=== PATIENT | male | born 1980 | race African-American/Black ===

== ENCOUNTER 2016-03-28 11:21 | Emergency (ER) | payer OTHER ==
[2016-03-28] MEDS ORDERED: OSELTAMIVIR 75 MG CAP PO STA (13:08)
--- NOTE | 2016-03-28 13:13 | ED ---
Weakness HPI - General Chief complaint: Weakness Stated complaint: WEAKNESS, NAUSEA Time Seen by Provider: 03/28/16 12:36 Source: patient, RN notes reviewed Mode of arrival: ambulatory Limitations: no limitations - History of Present Illness Initial comments: Patient's a 35-year-old man who presents with a number of symptoms that include a feeling of generalized fatigue and weakness, cough, fever and chills, and myalgia. He has also had a touch of nausea though no vomiting. The symptoms have started 2 days ago and worse overnight. MD Complaint: generalized weakness, lack of energy Onset/Timin -: days(s) Location: generalized Severity: mild Quality: aching Improves with: none Worsens with: none Associated Symptoms: fever/chills, nausea/vomiting - Related Data Home Medications Medication Instructions Recorded Confirmed Cetirizine HCl [Zyrtec] 10 mg PO DAILY 03/28/16 03/28/16 Omeprazole [PriLOSEC] 20 mg PO DAILY 03/28/16 03/28/16 Previous Rx's Medication Instructions Recorded Oseltamivir [Tamiflu] 75 mg PO Q12HR #10 cap 03/28/16 Promethazine 6.25MG/5Ml [Phenergan 5 ml PO Q4HR PRN #120 ml 03/28/16 Syrup] Allergies Allergy/AdvReac Type Severity Reaction Status Date / Time celery Allergy Unknown Verified 03/28/16 12:50 Melon Allergy Unknown Verified 03/28/16 12:50 Penicillins Allergy Rash/Hives Verified 03/28/16 12:50 shellfish derived [Shrimp] Allergy Unknown Verified 03/28/16 12:50 yeast, dried Allergy Unknown Verified 03/28/16 12:50 Review of Systems ROS Statement: Those systems with pertinent positive or pertinent negative responses have been documented in the HPI. ROS Other: All systems not noted in ROS Statement are negative. Constitutional: Reports: fever, chills, weakness Respiratory: Reports: cough. Denies: dyspnea, wheezes Cardiovascular: Denies: chest pain, palpitations, edema Gastrointestinal: Reports: nausea. Denies: abdominal pain, vomiting, diarrhea Genitourinary: Denies: dysuria, hematuria Musculoskeletal: Denies: back pain Skin: Denies: rash Neurological: Denies: headache, weakness, numbness Past Medical History Past Medical History: No Reported History History of Any Multi-Drug Resistant Organisms: None Reported Past Surgical History: Adenoidectomy, Tonsillectomy Past Psychological History: No Psychological Hx Reported Smoking Status: Current every day smoker Past Alcohol Use History: Rare Past Drug Use History: None Reported General Exam Limitations: no limitations General appearance: alert, in no apparent distress Head exam: Present: atraumatic Eye exam: Present: normal appearance. Absent: scleral icterus, conjunctival injection ENT exam: Present: normal oropharynx Neck exam: Present: normal inspection, full ROM, lymphadenopathy. Absent: tenderness, meningismus Respiratory exam: Present: normal lung sounds bilaterally. Absent: respiratory distress, wheezes, rales, rhonchi Cardiovascular Exam: Present: regular rate, normal rhythm, normal heart sounds. Absent: systolic murmur, diastolic murmur, rubs, gallop GI/Abdominal exam: Present: soft. Absent: distended, tenderness, guarding, rebound Back exam: Absent: CVA tenderness (R), CVA tenderness (L) Neurological exam: Present: alert, normal gait. Absent: motor sensory deficit Skin exam: Present: warm, dry, intact, normal color. Absent: rash Course Vital Signs 03/28/16 03/28/16 11:41 13:27 Temperature 98.5 F 98.2 F Pulse Rate 75 72 Respiratory 18 16 Rate Blood Pressure 111/60 126/80 O2 Sat by Pulse 98 97 Oximetry Disposition Clinical Impression: Influenza Disposition: HOME SELF-CARE Condition: Fair Instructions: Influenza (ED) Prescriptions: Oseltamivir [Tamiflu] 75 mg PO Q12HR #10 cap Promethazine 6.25MG/5Ml [Phenergan Syrup] 5 ml PO Q4HR PRN #120 ml PRN Reason: Cough Referrals: Kofi Mahoney MD [Primary Care Provider] - 1-2 days
[2016-03-28 13:29] VITALS: BP 126/80; PULSE 72; RESP 16; TEMP 98.2
== END 2016-03-28 13:29 | disposition home or self-care (01) ==
LOC: EC 11:21
DX: J11.1 Influenza due to unidentified influenza virus with other respiratory manifestations (principal); F17.200 Nicotine dependence, unspecified, uncomplicated; Z79.899 Other long term (current) drug therapy; Z88.0 Allergy status to penicillin
CPT/HCPCS: 99284

== ENCOUNTER 2016-11-27 09:21 | Emergency (ER) | payer OTHER ==
[2016-11-27] MEDS ORDERED: IPRATROPIUM-ALBUTEROL 3 ML NEB INHALATION STA (09:37)
--- NOTE | 2016-11-27 09:37 | ED ---
SOB HPI - General Chief Complaint: Shortness of Breath Stated Complaint: chest pain Time Seen by Provider: 11/27/16 09:21 Source: patient, EMS, RN notes reviewed Mode of arrival: EMS Limitations: no limitations - History of Present Illness Initial Comments: This is a 35-year-old male who was a smoker who states he had the onset about half hour prior to admission of shortness of breath with chest pressure and heaviness. Does have some dizziness. He had no known history of heart or lung disease only does smoke one half pack cigarettes per day. He does not use any inhalers. He was given nitroglycerin and the pain did resolve after one nitroglycerin is also given 324 mg of aspirin. He cannot quantify how severe the pain was but is gone now he still feels short of breath however. He's reported have clear lung sounds pulse oximetry 98% on room air. Patient does have a history of gastroesophageal reflux. He also states she's had a cough for about a month EKG coughs up yellow or white phlegm but experiences no fevers chills or sweats. MD Complaint: shortness of breath, cough, chest pain - Related Data Home Medications Medication Instructions Recorded Confirmed Cetirizine HCl [Zyrtec] 10 mg PO DAILY 03/28/16 11/27/16 Omeprazole [PriLOSEC] 20 mg PO DAILY 03/28/16 11/27/16 Previous Rx's Medication Instructions Recorded Albuterol Inhaler [Ventolin Hfa 2 puff INHALATION Q6HR PRN #1 11/27/16 Inhaler] inhaler predniSONE 20 mg PO BID #10 tab 11/27/16 Allergies Allergy/AdvReac Type Severity Reaction Status Date / Time celery Allergy Unknown Verified 11/27/16 09:57 Melon Allergy Unknown Verified 11/27/16 09:57 Penicillins Allergy Rash/Hives Verified 11/27/16 09:57 shellfish derived [Shrimp] Allergy Unknown Verified 11/27/16 09:57 yeast, dried Allergy Unknown Verified 11/27/16 09:57 Review of Systems ROS Statement: Those systems with pertinent positive or pertinent negative responses have been documented in the HPI. ROS Other: All systems not noted in ROS Statement are negative. Past Medical History Past Medical History: No Reported History Additional Past Medical History / Comment(s): Multiple food allergies History of Any Multi-Drug Resistant Organisms: None Reported Past Surgical History: Adenoidectomy, Tonsillectomy Past Psychological History: No Psychological Hx Reported Smoking Status: Current every day smoker Past Alcohol Use History: Rare Past Drug Use History: None Reported General Exam - General Exam Comments Initial Comments: this is a well-developed well-nourished alert oriented 3 male Limitations: no limitations General appearance: alert, anxious Head exam: Present: atraumatic, normocephalic, normal inspection Eye exam: Present: normal appearance, PERRL, EOMI. Absent: scleral icterus, conjunctival injection, periorbital swelling ENT exam: Present: normal exam, mucous membranes moist Neck exam: Present: normal inspection. Absent: tenderness, meningismus, lymphadenopathy Respiratory exam: Present: decreased breath sounds. Absent: respiratory distress, wheezes, rales, rhonchi, stridor Cardiovascular Exam: Present: regular rate, normal rhythm, normal heart sounds. Absent: systolic murmur, diastolic murmur, rubs, gallop, clicks GI/Abdominal exam: Present: soft, normal bowel sounds. Absent: distended, tenderness, guarding, rebound, rigid Extremities exam: Present: normal inspection, full ROM, normal capillary refill. Absent: tenderness, pedal edema, joint swelling, calf tenderness Back exam: Present: normal inspection Neurological exam: Present: alert, oriented X3, CN II-XII intact Psychiatric exam: Present: normal affect, normal mood Skin exam: Present: warm, dry, intact, normal color. Absent: rash Course Vital Signs 11/27/16 11/27/16 11/27/16 09:26 09:45 09:54 Temperature 98.1 F Pulse Rate 89 91 91 Respiratory 17 14 Rate Blood Pressure 117/68 O2 Sat by Pulse 97 Oximetry Medical Decision Making - Medical Decision Making Patient on reevaluation was resting comfortably and feeling improved the presentation is consistent with acute bronchospasm. We did have a long discussion that seems 3.1 minutes regarding smoking cessation. Patient will be discharged on appropriate medication he is warned that he should stop smoking. - Lab Data Result diagrams: 11/27/16 09:26 11/27/16 09:26 Lab Results 11/27/16 11/27/16 11/27/16 Range/Units 09:26 09:26 09:26 WBC 4.7 (3.8-10.6) k/uL RBC 4.48 (4.30-5.90) m/uL Hgb 13.6 (13.0-17.5) gm/dL Hct 42.0 (39.0-53.0) % MCV 93.7 (80.0-100.0) fL MCH 30.3 (25.0-35.0) pg MCHC 32.4 (31.0-37.0) g/dL RDW 13.2 (11.5-15.5) % Plt Count 235 (150-450) k/uL Neutrophils % 54 % Lymphocytes % 36 % Monocytes % 5 % Eosinophils % 1 % Basophils % 1 % Neutrophils # 2.5 (1.3-7.7) k/uL Lymphocytes # 1.7 (1.0-4.8) k/uL Monocytes # 0.3 (0-1.0) k/uL Eosinophils # 0.1 (0-0.7) k/uL Basophils # 0.0 (0-0.2) k/uL PT (9.0-12.0) sec INR (<1.2) APTT (22.0-30.0) sec D-Dimer (<0.60) mg/L FEU Sodium 143 (137-145) mmol/L Potassium 4.4 (3.5-5.1) mmol/L Chloride 110 H (98-107) mmol/L Carbon Dioxide 20 L (22-30) mmol/L Anion Gap 13 mmol/L BUN 8 L (9-20) mg/dL Creatinine 1.03 (0.66-1.25) mg/dL Est GFR (MDRD) Af Amer >60 (>60 ml/min/1.73 sqM) Est GFR (MDRD) Non-Af >60 (>60 ml/min/1.73 sqM) Glucose 107 H (74-99) mg/dL Calcium 9.4 (8.4-10.2) mg/dL Magnesium 2.0 (1.6-2.3) mg/dL Total Bilirubin 0.7 (0.2-1.3) mg/dL AST 28 (17-59) U/L ALT 37 (21-72) U/L Alkaline Phosphatase 53 (38-126) U/L Total Creatine Kinase 649 H (55-170) U/L CK-MB (CK-2) 0.8 (0.0-2.4) ng/mL CK-MB (CK-2) Rel Index 0.1 Troponin I <0.012 (0.000-0.034) ng/mL NT-Pro-B Natriuret Pep pg/mL Total Protein 7.2 (6.3-8.2) g/dL Albumin 4.5 (3.5-5.0) g/dL Amylase 61 (30-110) U/L Lipase 42 (23-300) U/L 11/27/16 11/27/16 Range/Units 09:26 09:26 WBC (3.8-10.6) k/uL RBC (4.30-5.90) m/uL Hgb (13.0-17.5) gm/dL Hct (39.0-53.0) % MCV (80.0-100.0) fL MCH (25.0-35.0) pg MCHC (31.0-37.0) g/dL RDW (11.5-15.5) % Plt Count (150-450) k/uL Neutrophils % % Lymphocytes % % Monocytes % % Eosinophils % % Basophils % % Neutrophils # (1.3-7.7) k/uL Lymphocytes # (1.0-4.8) k/uL Monocytes # (0-1.0) k/uL Eosinophils # (0-0.7) k/uL Basophils # (0-0.2) k/uL PT 12.0 (9.0-12.0) sec INR 1.2 H (<1.2) APTT 31.0 H (22.0-30.0) sec D-Dimer <0.17 (<0.60) mg/L FEU Sodium (137-145) mmol/L Potassium (3.5-5.1) mmol/L Chloride (98-107) mmol/L Carbon Dioxide (22-30) mmol/L Anion Gap mmol/L BUN (9-20) mg/dL Creatinine (0.66-1.25) mg/dL Est GFR (MDRD) Af Amer (>60 ml/min/1.73 sqM) Est GFR (MDRD) Non-Af (>60 ml/min/1.73 sqM) Glucose (74-99) mg/dL Calcium (8.4-10.2) mg/dL Magnesium (1.6-2.3) mg/dL Total Bilirubin (0.2-1.3) mg/dL AST (17-59) U/L ALT (21-72) U/L Alkaline Phosphatase (38-126) U/L Total Creatine Kinase (55-170) U/L CK-MB (CK-2) (0.0-2.4) ng/mL CK-MB (CK-2) Rel Index Troponin I (0.000-0.034) ng/mL NT-Pro-B Natriuret Pep 14 pg/mL Total Protein (6.3-8.2) g/dL Albumin (3.5-5.0) g/dL Amylase (30-110) U/L Lipase (23-300) U/L - EKG Data -: EKG Interpreted by Me EKG shows normal: sinus rhythm, axis, intervals, QRS complexes, ST-T waves Rate: normal (EKG shows normal sinus rhythm of 99. Interval 138 QRS duration 100 QT since QTC of 332/426 this is a normal-appearing EKG.) - Radiology Data Radiology results: report reviewed (I did review the imaging and reports no acute findings.), image reviewed Disposition Clinical Impression: Acute bronchospasm, Atypical chest pain, Smoking Disposition: HOME SELF-CARE Condition: Good Instructions: Bronchospasm (ED), How to Stop Smoking (ED) Prescriptions: Albuterol Inhaler [Ventolin Hfa Inhaler] 2 puff INHALATION Q6HR PRN #1 inhaler PRN Reason: Dyspnea predniSONE 20 mg PO BID #10 tab Referrals: Joana Camacho MD [Primary Care Provider] - 1-2 days
[2016-11-27 09:45] LABS: Basophils % (A) 1 %; CH 31.4; CHCM 33.6; Eosinophils # (A) 0.1 k/uL (0-0.7); Eosinophils % (A) 1 %; HDW 2.29; HGB 13.6 gm/dL (13.0-17.5); Luc # (Auto) 0.15; Luc % (Auto) 3; Lymphocytes # (A) 1.7 k/uL (1.0-4.8); Lymphocytes % (A) 36 %; MCH 30.3 pg (25.0-35.0); MCHC 32.4 g/dL (31.0-37.0); MCV 93.7 fL (80.0-100.0); Mean Platelet Volume 7.7; Monocytes # (A) 0.3 k/uL (0-1.0); Monocytes % (A) 5 %; Neutrophils # (A) 2.5 k/uL (1.3-7.7); Neutrophils % (A) 54 %; RBC 4.48 m/uL (4.30-5.90); RDW 13.2 % (11.5-15.5); WBC 4.7 k/uL (3.8-10.6); WBC (Perox) 4.96
--- NOTE | 2016-11-27 09:47 | XR ---
EXAMINATION TYPE: XR chest 2V DATE OF EXAM: 11/27/2016 HISTORY: Chest Pain. REFERENCE: Previous study dated 01/24/2016. FINDINGS: The lungs are clear. Pleural spaces are clear. Heart size is normal. IMPRESSION: NORMAL CHEST.
[2016-11-27 09:54] LABS: ALT 37 U/L (21-72); AST 28 U/L (17-59); Alkaline Phosphatase 53 U/L (38-126); Amylase 61 U/L (30-110); Anion Gap 13 mmol/L; Blood Urea Nitrogen 8 mg/dL (9-20); Calcium 9.4 mg/dL (8.4-10.2); Carbon Dioxide 20 mmol/L (22-30); Chloride 110 mmol/L (98-107); Glucose 107 mg/dL (74-99); Non-African American GFR(MDRD) >60 (>60 ml/min/1.73 sqM); Potassium 4.4 mmol/L (3.5-5.1); Sodium 143 mmol/L (137-145); Total Bilirubin 0.7 mg/dL (0.2-1.3); Total Protein 7.2 g/dL (6.3-8.2)
[2016-11-27 09:59] LABS: INR 1.2 (<1.2)
[2016-11-27 10:04] LABS: Creatine Kinase 649 U/L (55-170)
[2016-11-27 10:17] LABS: Creatine Kinase MB 0.8 ng/mL (0.0-2.4); Troponin I <0.012 ng/mL (0.000-0.034)
[2016-11-27] MEDS ORDERED: predniSONE 50 MG TAB PO STA (11:08)
[2016-11-27 11:33] VITALS: BP 106/65; PULSE 62; RESP 17; TEMP 97.2
== END 2016-11-27 11:33 | disposition home or self-care (01) ==
LOC: EC 09:21
DX: J98.01 Acute bronchospasm (principal); R07.89 Other chest pain; K21.9 Gastro-esophageal reflux disease without esophagitis; F17.210 Nicotine dependence, cigarettes, uncomplicated; Z79.899 Other long term (current) drug therapy; Z88.0 Allergy status to penicillin; Z91.013 Allergy to seafood; Z91.018 Allergy to other foods
CPT/HCPCS: 36415; 94640; 93005; 85379; 83880; 80053; 82150; 82550; 82553; 83690; 83735; 84484; 85025; 85610; 85730; 87040; 71020; 99285; J7512

== ENCOUNTER → 2016-12-08 | Outpatient (CLI) | payer OTHER ==
--- NOTE | 2016-12-08 21:31 | EST ---
EXERCISE STRESS AGE: 36 SEX: Male. HT: WT: PROTOCOL: STAGE: DURATION OF EXERCISE: HEART RATE REST: BLOOD PRESSURE REST: MAXIMUM HEART RATE ACHIEVED: MAXIMUM BLOOD PRESSURE: 85% MPHR: 100% MPHR: METS: INDICATIONS: History of chest pain and shortness of breath. CLINICAL INFORMATION: Baseline heart rate 88 beats per minute. Baseline blood pressure 117/85 mmHg. Baseline 12-lead ECG shows normal sinus rhythm and normal cardiac intervals. Patient exercised on Lonny protocol for only 8 minutes, achieving a peak heart rate of 173 beats per minute. Normal blood pressure response to exercise. Peak blood pressure was 174/55 mmHg. There was no ECG evidence for ischemia. No arrhythmias were noted. Nuclear portion of the stress test will be reported separately. MMODL / IJN: [id number] /
== END | disposition home or self-care (01) ==
LOC: RADNMMAIN 10:49
PROVIDERS: ATTEND Internal Medicine
DX: R07.89 Other chest pain (principal); R06.00 Dyspnea, unspecified
CPT/HCPCS: 93017

== ENCOUNTER 2022-11-23 14:02 | Emergency (ER) | payer OTHER ==
--- NOTE | 2022-11-23 14:14 | ED ---
General Adult HPI - General Source: patient, police, EMS, RN notes reviewed Mode of arrival: EMS Limitations: no limitations <Herbert Juarez - Last Filed: 11/23/22 14:13> <Frida Ruiz - Last Filed: 11/23/22 21:20> - General Stated complaint: abd pain Time Seen by Provider: 11/23/22 14:13 - History of Present Illness Initial comments: 41-year-old male presents emergency Department with police for evaluation of abdominal pain. Patient is currently incarcerated states pain started after eating today. Patient states sometimes radiating out. He states she's been told that he's had ALLERGIES to gluten. (Herbert Juarez) Patient is a 41-year-old male who presents to the emergency department for abdominal pain. Patient is incarcerated he reports abrupt abdominal pain after eating today. He has pain in his lower abdomen. Reports nausea no vomiting. No urinary symptoms. No changes in bowel habits. No fever or chills. (Frida Ruiz) - Related Data Home Medications Medication Instructions Recorded Confirmed Cetirizine HCl [Zyrtec] 10 mg PO DAILY 03/28/16 11/27/16 Omeprazole [PriLOSEC] 20 mg PO DAILY 03/28/16 11/27/16 Previous Rx's Medication Instructions Recorded Albuterol Inhaler [Ventolin Hfa 2 puff INHALATION Q6HR PRN #1 11/27/16 Inhaler] inhaler predniSONE [Deltasone] 20 mg PO BID #10 tab 11/27/16 Ibuprofen [Motrin] 800 mg PO Q8HR PRN #30 tab 11/23/22 Ondansetron Odt [Zofran Odt] 4 mg PO Q8HR PRN #10 tab 11/23/22 Allergies Allergy/AdvReac Type Severity Reaction Status Date / Time celery Allergy Unknown Verified 11/23/22 14:16 Melon Allergy Unknown Verified 11/23/22 14:16 Penicillins Allergy Rash/Hives Verified 11/23/22 14:16 shellfish derived [Shrimp] Allergy Unknown Verified 11/23/22 14:16 yeast, dried Allergy Unknown Verified 11/23/22 14:16 Review of Systems ROS Other: All systems not noted in ROS Statement are negative. <Herbert Juarez - Last Filed: 11/23/22 14:13> ROS Other: All systems not noted in ROS Statement are negative. <Frida Ruiz - Last Filed: 11/23/22 21:20> ROS Statement: Those systems with pertinent positive or pertinent negative responses have been documented in the HPI. Past Medical History Past Medical History: No Reported History Additional Past Medical History / Comment(s): Multiple food allergies History of Any Multi-Drug Resistant Organisms: None Reported Past Surgical History: Adenoidectomy, Tonsillectomy Past Psychological History: No Psychological Hx Reported Past Alcohol Use History: Rare Past Drug Use History: None Reported <Herbert Juarez - Last Filed: 11/23/22 14:13> General Exam <Herbert Juarez - Last Filed: 11/23/22 14:13> General appearance: alert, in no apparent distress Respiratory exam: Present: normal lung sounds bilaterally. Absent: respiratory distress, wheezes, rales, rhonchi, stridor Cardiovascular Exam: Present: regular rate, normal rhythm, normal heart sounds. Absent: systolic murmur, diastolic murmur, rubs, gallop, clicks GI/Abdominal exam: Present: soft, tenderness (RLQ, LLQ ), normal bowel sounds. Absent: distended, guarding, rebound, rigid Neurological exam: Present: alert Psychiatric exam: Present: normal affect, normal mood Skin exam: Present: warm, dry, intact, normal color. Absent: rash <Frida Ruiz - Last Filed: 11/23/22 21:20> - General Exam Comments Initial Comments: Visual Physical Exam Vital signs reviewed General: Well-appearing, nontoxic, no acute distress. Head: Normocephalic, atraumatic Eyes: PERRLA, EOMI ENT: Airway patent Chest: Nonlabored breathing Skin: No visual rash, normal skin tone Neuro: Alert and oriented 3 Musculoskeletal: No gross abnormalities (Herbert Juarez) Course Vital Signs 11/23/22 11/23/22 14:14 19:28 Temperature 98.9 F 98.1 F Pulse Rate 82 83 Respiratory 18 18 Rate Blood Pressure 111/76 106/74 O2 Sat by Pulse 100 99 Oximetry Medical Decision Making <Herbert Juarez - Last Filed: 11/23/22 14:13> - Lab Data Result diagrams: 11/23/22 14:57 11/23/22 14:57 <Frida Ruiz - Last Filed: 11/23/22 21:20> - Medical Decision Making I performed a quick note portion of this Chart signed Herbert Juarez PA-C (Herbert Juarez) Was pt. sent in by a medical professional or institution ([facility], [employer], urgent care, hospital, or detention...) When possible be specific @ -No Did you speak to anyone other than the patient for history (EMS, parent, family, police, friend...)? What history was obtained from this source @ -No Did you review nursing and triage notes (agree or disagree)? Why? @ -I reviewed and agree with nursing and triage notes Were old charts reviewed (outside hosp., previous admission, EMS record, old EKG, old radiological studies, urgent care reports/EKG's, detention records)? Report findings @ -No old charts were reviewed Differential Diagnosis (chest pain, altered mental status, abdominal pain women, abdominal pain men, vaginal bleeding, weakness, fever, dyspnea, syncope, headache, dizziness, GI bleed, back pain, seizure, CVA, palpatations, mental health)? @ -Differential Abdominal Pain Men: Appendicitis, cholecystitis, diverticulosis, ischemic bowel, pancreatitis, hepatitis, UTI, gastroenteritis, AAA, incarcerated hernia, bowel obstruction, constipation, inflammatory bowel, hepatitis, peptic ulcer disease, splenic infarction, perforated viscus, testicular torsion, this is not meant to be an all-inclusive list EKG interpreted by me (3pts min.). @ -As above X-rays interpreted by me (1pt min.). @ -None done CT interpreted by me (1pt min.). @ -No acute process U/S interpreted by me (1pt. min.). @ -None done What testing was considered but not performed or refused? (CT, X-rays, U/S, labs)? Why? @ -None What meds were considered but not given or refused? Why? @ -None Did you discuss the management of the patient with other professionals (professionals i.e. , [facility], [employer], lab, RT, psych nurse, social studies department chair, allocation analyst, teacher, special police officer, manager rn case)? Give summary @ -No Was smoking cessation discussed for >3mins.? @ -No Was critical care preformed (if so, how long)? @ -No Were there social determinants of health that impacted care today? How? (Homelessness, low income, unemployed, alcoholism, drug addiction, transportation, low edu. Level, literacy, decrease access to med. care, [facility], rehab)? @ -No Was there de-escalation of care discussed even if they declined (Discuss DNR or withdrawal of care, Hospice)? DNR status @ -No What co-morbidities impacted this encounter? (DM, HTN, Smoking, COPD, CAD, Cancer, CVA, ARF, Chemo, Hep., AIDS, mental health diagnosis, sleep apnea, morbid obesity)? @ -None Was patient admitted / discharged? Hospital course, mention meds given and route, prescriptions, significant lab abnormalities, going to OR and other pertinent info. @ -Patient presenting for abdominal pain. He is nontoxic appearing. I did obtain CT of the abdomen and pelvis due to lower abdominal tenderness. I i nterpreted this myself showing no acute process. Labs are unremarkable. Pain improved in the emergency Department patient discharged in stable condition with symptomatic management Undiagnosed new problem with uncertain prognosis? @ -No Drug Therapy requiring intensive monitoring for toxicity (Heparin, Nitro, Insulin, Cardizem)? @ -No Were any procedures done? @ -No Diagnosis/symptom? @ -abdominal pain, nausea Acute, or Chronic, or Acute on Chronic? @ -acute Uncomplicated (without systemic symptoms) or Complicated (systemic symptoms)? @ uncomplicated Side effects of treatment? @ -No Exacerbation, Progression, or Severe Exacerbation? @ -No Poses a threat to life or bodily function? How? (Chest pain, USA, IA, pneumonia, PE, COPD, DKA, ARF, appy, cholecystitis, CVA, Diverticulitis, Homicidal, Suicidal, threat to staff... and all critical care pts) @ -[No] Dr. Martin is my attending. (Frida Ruiz) - Lab Data Lab Results 11/23/22 11/23/22 11/23/22 Range/Units 14:57 14:57 14:57 WBC 7.8 (3.8-10.6) k/uL RBC 5.28 (4.30-5.90) m/uL Hgb 15.6 (13.0-17.5) gm/dL Hct 49.5 (39.0-53.0) % MCV 93.8 (80.0-100.0) fL MCH 29.5 (25.0-35.0) pg MCHC 31.4 (31.0-37.0) g/dL RDW 12.8 (11.5-15.5) % Plt Count 302 (150-450) k/uL MPV 8.7 Neutrophils % 77 % Lymphocytes % 15 % Monocytes % 4 % Eosinophils % 3 % Basophils % 0 % Neutrophils # 6.0 (1.3-7.7) k/uL Lymphocytes # 1.2 (1.0-4.8) k/uL Monocytes # 0.3 (0-1.0) k/uL Eosinophils # 0.2 (0-0.7) k/uL Basophils # 0.0 (0-0.2) k/uL Sodium 138 (137-145) mmol/L Potassium 4.4 (3.5-5.1) mmol/L Chloride 100 (98-107) mmol/L Carbon Dioxide 28 (22-30) mmol/L Anion Gap 10 mmol/L BUN 13 (9-20) mg/dL Creatinine 0.90 (0.66-1.25) mg/dL Est GFR (CKD-EPI)AfAm >90 (>60 ml/min/1.73 sqM) Est GFR (CKD-EPI)NonAf >90 (>60 ml/min/1.73 sqM) Glucose 110 H (74-99) mg/dL Plasma Lactic Acid Jake 1.8 (0.7-2.0) mmol/L Calcium 10.2 (8.4-10.2) mg/dL Total Bilirubin 0.7 (0.2-1.3) mg/dL AST 27 (17-59) U/L ALT 30 (4-49) U/L Alkaline Phosphatase 70 (38-126) U/L Total Protein 8.2 (6.3-8.2) g/dL Albumin 4.8 (3.5-5.0) g/dL Lipase 108 (23-300) U/L Urine Color Urine Appearance (Clear) Urine pH (5.0-8.0) Ur Specific [place] (1.001-1.035) Urine Protein (Negative) Urine Glucose (UA) (Negative) Urine Ketones (Negative) Urine Blood (Negative) Urine Nitrite (Negative) Urine Bilirubin (Negative) Urine Urobilinogen (<2.0) mg/dL Ur Leukocyte Esterase (Negative) 11/23/22 Range/Units 17:05 WBC (3.8-10.6) k/uL RBC (4.30-5.90) m/uL Hgb (13.0-17.5) gm/dL Hct (39.0-53.0) % MCV (80.0-100.0) fL MCH (25.0-35.0) pg MCHC (31.0-37.0) g/dL RDW (11.5-15.5) % Plt Count (150-450) k/uL MPV Neutrophils % % Lymphocytes % % Monocytes % % Eosinophils % % Basophils % % Neutrophils # (1.3-7.7) k/uL Lymphocytes # (1.0-4.8) k/uL Monocytes # (0-1.0) k/uL Eosinophils # (0-0.7) k/uL Basophils # (0-0.2) k/uL Sodium (137-145) mmol/L Potassium (3.5-5.1) mmol/L Chloride (98-107) mmol/L Carbon Dioxide (22-30) mmol/L Anion Gap mmol/L BUN (9-20) mg/dL Creatinine (0.66-1.25) mg/dL Est GFR (CKD-EPI)AfAm (>60 ml/min/1.73 sqM) Est GFR (CKD-EPI)NonAf (>60 ml/min/1.73 sqM) Glucose (74-99) mg/dL Plasma Lactic Acid Jake (0.7-2.0) mmol/L Calcium (8.4-10.2) mg/dL Total Bilirubin (0.2-1.3) mg/dL AST (17-59) U/L ALT (4-49) U/L Alkaline Phosphatase (38-126) U/L Total Protein (6.3-8.2) g/dL Albumin (3.5-5.0) g/dL Lipase (23-300) U/L Urine Color Yellow Urine Appearance Clear (Clear) Urine pH 5.5 (5.0-8.0) Ur Specific [place] 1.021 (1.001-1.035) Urine Protein Trace H (Negative) Urine Glucose (UA) Negative (Negative) Urine Ketones Negative (Negative) Urine Blood Negative (Negative) Urine Nitrite Negative (Negative) Urine Bilirubin Negative (Negative) Urine Urobilinogen 2.0 (<2.0) mg/dL Ur Leukocyte Esterase Negative (Negative) Disposition <Herbert Juarez - Last Filed: 11/23/22 14:13> Is patient prescribed a controlled substance at d/c from ED?: No <Frida Ruiz - Last Filed: 11/23/22 21:20> Clinical Impression: Abdominal pain, Nausea Disposition: HOME SELF-CARE Condition: Good Instructions (If sedation given, give patient instructions): Abdominal Pain (ED) Additional Instructions: Take medication as directed. Return to the emergency department experience new, concerning, or worsening symptoms. Prescriptions: Ibuprofen [Motrin] 800 mg PO Q8HR PRN #30 tab PRN Reason: Pain Ondansetron Odt [Zofran Odt] 4 mg PO Q8HR PRN #10 tab PRN Reason: Nausea Referrals: None,Stated [Primary Care Provider] - 1-2 days
[2022-11-23 14:17] VITALS: RESP 18
[2022-11-23 15:15] LABS: Basophils % (A) 0 %; Eosinophils # (A) 0.2 k/uL (0-0.7); Eosinophils % (A) 3 %; HCT 49.5 % (39.0-53.0); HGB 15.6 gm/dL (13.0-17.5); Lymphocytes # (A) 1.2 k/uL (1.0-4.8); Lymphocytes % (A) 15 %; MCH 29.5 pg (25.0-35.0); MCHC 31.4 g/dL (31.0-37.0); MCV 93.8 fL (80.0-100.0); Mean Platelet Volume 8.7; Monocytes # (A) 0.3 k/uL (0-1.0); Monocytes % (A) 4 %; Neutrophils % (A) 77 %; Platelet Count 302 k/uL (150-450); RBC 5.28 m/uL (4.30-5.90); RDW 12.8 % (11.5-15.5); WBC 7.8 k/uL (3.8-10.6)
[2022-11-23 15:37] LABS: ALT 30 U/L (4-49); AST 27 U/L (17-59); African American GFR (CKD) >90 (>60 ml/min/1.73 sqM); Albumin 4.8 g/dL (3.5-5.0); Alkaline Phosphatase 70 U/L (38-126); Anion Gap 10 mmol/L; Blood Urea Nitrogen 13 mg/dL (9-20); Calcium 10.2 mg/dL (8.4-10.2); Carbon Dioxide 28 mmol/L (22-30); Chloride 100 mmol/L (98-107); Glucose 110 mg/dL (74-99); Lipase 108 U/L (23-300); Non-African American GFR(CKD) >90 (>60 ml/min/1.73 sqM); Potassium 4.4 mmol/L (3.5-5.1); Sodium 138 mmol/L (137-145); Total Bilirubin 0.7 mg/dL (0.2-1.3); Total Protein 8.2 g/dL (6.3-8.2)
[2022-11-23] MEDS ORDERED: ONDANSETRON 4 MG/2 ML VIAL IVP STA (16:33)
[2022-11-23] MEDS ORDERED: KETOROLAC 15 MG/ML 1 ML VIAL IVP STA (16:56)
[2022-11-23] MEDS ORDERED: SODIUM CHLORIDE 0.9% 1,000 ML IV STA (16:58)
[2022-11-23 17:21] LABS: Appearance,Urine Clear (Clear); Bilirubin,Urine Negative (Negative); Blood,Urine Negative (Negative); Color,Urine Yellow; Glucose,Urine (UA) Negative (Negative); Ketones,Urine Negative (Negative); Leukocyte Esterase,Urine Negative (Negative); Nitrite,Urine Negative (Negative); PH, Urine 5.5 (5.0-8.0); Protein,Urine Trace (Negative); Specific Gravity,Urine 1.021 (1.001-1.035)
--- NOTE | 2022-11-23 18:11 | CT ---
EXAMINATION TYPE: CT abdomen pelvis w con DATE OF EXAM: 11/23/2022 COMPARISON: None INDICATION: lower abd pain DLP: 780.7 mGycm, Automated exposure control for dose reduction was used. CONTRAST: 100ml mL of Isovue 300. Study performed without Oral Contrast TECHNIQUE: Axial images were obtained from above the diaphragm to the pubic rami in the axial plane a t 5 mm thick sections. Reconstructed images are reviewed on the computer in the coronal plane. FINDINGS: Limited CT sections are obtained the lung bases. The lung bases are clear. CT ABDOMEN: Liver: Normal Spleen: Normal Pancreas: Normal Adrenal glands: The adrenal glands are normal. Gallbladder: Normal Kidneys: No masses are evident. No hydronephrosis is present. No cysts are present. Delayed images were obtained through the kidneys, which remain unremarkable. Aorta: Normal Inferior vena cava: Normal. CT PELVIS: Motion artifact limits the pelvis Loops of bowel within the abdomen and pelvis are normal. This study is without oral contrast limi ting bowel evaluation. Appendix: Not identified. No dilated tubular structure or inflammatory change is evident. Urinary bladder: Diffuse wall thickening appears to be present. Correlate for cystitis. Genitourinary structures: Prostate appears normal Osseous structures: No suspicious lytic or sclerotic lesions. IMPRESSION: 1. Suggestion of mild diffuse urinary bladder wall thickening. Correlate for cystitis.
[2022-11-24 15:47] VITALS: BP 106/74; PULSE 83; TEMP 98.1
== END 2022-11-23 19:32 | disposition home or self-care (01) ==
LOC: EC 14:02
DX: R10.30 Lower abdominal pain, unspecified (principal); R11.0 Nausea; Z88.0 Allergy status to penicillin; Z91.013 Allergy to seafood; Z91.018 Allergy to other foods
CPT/HCPCS: 36415; 80053; 83605; 83690; 85025; 81003; 74177; 99284; 96374; 96375; 96361; J2405; J1885; Q9967